=== PATIENT | male | born 1970 | race Two or more races ===

== ENCOUNTER 2024-02-13 21:21 | Emergency (ER) | payer OTHER ==
[~2024-02-13] VITALS: Ht 172.7 cm; Wt 90.7 kg
[2024-02-13] MEDS ORDERED: ACETAMINOPHEN ES 500 MG TABLET ONE (22:59)
[2024-02-13] MEDS ORDERED: CYCLOBENZAPRINE 10 MG TABLET ONE (22:59)
[2024-02-13] MEDS ORDERED: IBUPROFEN 600 MG TABLET ONE (22:59)
[2024-02-13] MEDS: IBUPROFEN 600 MG TABLET PO ONE (23:06)
[2024-02-13] MEDS: ACETAMINOPHEN ES 500 MG TABLET PO ONE (23:06)
[2024-02-13] MEDS: CYCLOBENZAPRINE 10 MG TABLET PO ONE (23:06)
[2024-02-13] MEDS ORDERED: CYCL5TAB PO (23:44)
[2024-02-13] MEDS ORDERED: IBUP-1955 PO (23:44)
[2024-02-13] MEDS ORDERED: ACET-2605 PO (23:44)
[2024-02-13 23:57] VITALS: BP 132/76; TEMP 98.8; O2SAT 98
== END 2024-02-13 23:57 | disposition home or self-care (01) ==
LOC: ER 21:27
DX: R51.9 Headache, unspecified (principal); R07.81 Pleurodynia; M79.602 Pain in left arm; I10 Essential (primary) hypertension; E11.9 Type 2 diabetes mellitus without complications; V43.52XA Car driver injured in collision with other type car in traffic accident, initial encounter; Y93.89 Activity, other specified; Y92.488 Other paved roadways as the place of occurrence of the external cause; Y99.8 Other external cause status
CPT/HCPCS: 70450-TC; 71100-TC